=== PATIENT | male | born 1965 | race African-American/Black ===

== ENCOUNTER 2017-08-31 17:38 | Emergency (ER) | payer MEDICAID ==
[~2017-08-31] VITALS: Ht 177.8 cm; Wt 93.0 kg
[2017-08-31] MEDS ORDERED: IBUPROFEN 800MG TABLET PO ONE (19:30)
[2017-08-31 20:20] VITALS: BP 132/77
== END 2017-08-31 20:20 | disposition home or self-care (01) ==
LOC: ER 17:38
DX: S93.402A Sprain of unspecified ligament of left ankle, initial encounter (principal); X58.XXXA Exposure to other specified factors, initial encounter; Y93.9 Activity, unspecified; Y92.9 Unspecified place or not applicable; B35.3 Tinea pedis; G89.29 Other chronic pain; R03.0 Elevated blood-pressure reading, without diagnosis of hypertension; M10.9 Gout, unspecified; F17.210 Nicotine dependence, cigarettes, uncomplicated; Z71.6 Tobacco abuse counseling; Z87.828 Personal history of other (healed) physical injury and trauma
CPT/HCPCS: 73610; 99284; 99406

== ENCOUNTER 2017-10-08 14:30 | Emergency (ER) | payer MEDICAID ==
[~2017-10-08] VITALS: Ht 177.8 cm; Wt 90.0 kg
[2017-10-08] MEDS ORDERED: IBUPROFEN 600MG TABLET PO ONE (14:45)
[2017-10-08 16:19] VITALS: BP 160/82
== END 2017-10-08 16:24 | disposition home or self-care (01) ==
LOC: ER 14:30
DX: B35.3 Tinea pedis (principal); M19.90 Unspecified osteoarthritis, unspecified site; F17.200 Nicotine dependence, unspecified, uncomplicated; M10.9 Gout, unspecified
CPT/HCPCS: 73610; 73630; 99284